=== PATIENT | female | born 1940 | race Caucasian/White ===

== ENCOUNTER → 2016-10-17 | Outpatient (CLI) | payer MEDICARE, BC ==
--- NOTE | 2016-10-17 10:13 | MM ---
Reason for exam: follow-up at short interval from prior study. Last mammogram was performed 6 months ago. History: Patient is postmenopausal. Benign u/S right breast localization of the right breast, May 14, 2011. 9 excisional biopsies of the left breast. 9 excisional biopsies of the right breast. Took tamoxifen for 5 years beginning at age 61. Physical Findings: Nurse did not find any significant physical abnormalities on exam. MG 3D Diag Mammo W/Cad LT CC and MLO view(s) were taken of the left breast. Prior study comparison: April 23, 2016, bilateral MG 3d screening mammo w/cad. December 11, 2014, bilateral MG screening mammo w CAD. The breast tissue is heterogeneously dense. This may lower the sensitivity of mammography. Finding: There are typically benign calcifications in the left breast. There is a chronic nodularity in the left breast. No significant changes in finding since April 23, 2016 and December 11, 2014. These results were verbally communicated with the patient and result sheet given to the patient on 10/17/16. ASSESSMENT: Benign, BI-RAD 2 RECOMMENDATION: Return to routine screening mammogram schedule for both breasts. Back on schedule.
== END | disposition home or self-care (01) ==
LOC: RADMAMWWP 09:06
PROVIDERS: ATTEND Surgery
DX: R92.8 Other abnormal and inconclusive findings on diagnostic imaging of breast (principal)
CPT/HCPCS: G0206; G0279

== ENCOUNTER → 2017-06-19 | Outpatient (CLI) | payer MEDICARE, BC ==
--- NOTE | 2017-06-22 11:58 | MM ---
Reason for exam: screening (asymptomatic). Last mammogram was performed 8 months ago. History: Patient is postmenopausal. Benign u/S right breast localization of the right breast, May 14, 2011. 9 excisional biopsies of the left breast. 9 excisional biopsies of the right breast. Took tamoxifen for 5 years beginning at age 61. Physical Findings: A clinical breast exam by your physician is recommended on an annual basis and results should be correlated with mammographic findings. MG 3D Screening Mammo W/Cad Bilateral CC and MLO view(s) were taken. Prior study comparison: October 17, 2016, left breast MG 3d diag mammo w/cad LT. April 23, 2016, bilateral MG 3d screening mammo w/cad. The breast tissue is extremely dense which could obscure a lesion on mammography. Stable benign calcifications. There is no discrete abnormality. No significant changes when compared with prior studies. ASSESSMENT: Benign, BI-RAD 2 RECOMMENDATION: Routine screening mammogram of both breasts in 1 year.
== END | disposition home or self-care (01) ==
LOC: RADMAMWWP 08:53
PROVIDERS: ATTEND Surgery
DX: Z12.31 Encounter for screening mammogram for malignant neoplasm of breast (principal)
CPT/HCPCS: 77063; 77067

== ENCOUNTER → 2020-03-02 | Outpatient (CLI) | payer MEDICARE, BC ==
[2020-03-02 10:20] VITALS: BP 130/82; PULSE 102; RESP 18; TEMP 98.4
--- NOTE | 2020-03-02 10:38 | P.GSHP ---
History of Present Illness H&P Date: 03/02/20 Chief Complaint: fibrocystic breast disease Yasemin is a 79-year-old white female seen in consultation for Dr. Nataliia Lao who presents for breast evaluation. Yasemin does not feel any lumps masses or nodules of concern in her breasts. Her last mammogram was 2 years ago . She has had a long history of very fibrocystic breast disease. She was actually on a antiestrogen trial approximately 20 years ago in which after starting the medication the lumpiness of her breast resolved. She was on that medication for five years. She has had bilateral breast biopsies in the operating room all of which have been benign in the remote past. She is not complaining of any trauma or infection in the breast. Caffeine:3 cups/day Nicotine: Negative Theophylline: daily Family History: uncle (maternal): stomach maternal aunt: lymphoma mother: skin cancer Hormonal History: menarche: 13 , breast fed: no, age at first : 25 menopause: hysterectomy at 35, left ovaries; no cancer BCP: 5 years hormones: none Surgical history: Bilateral breast biopsies Hysterectomy tonsil Medical history: Negative leaky bladder Social history: Nicotine: Negative Alcohol: Negative Drugs: Negative - Constitutional Constitutional: Denies chills, Denies fever - EENT Eyes: denies blurred vision, denies pain Ears: bilateral: decreased hearing (wears hearing aids), deny: tinnitus Ears, nose, mouth and throat: Denies headache, Denies sore throat - Breasts Breasts: bilateral: as per HPI - Cardiovascular Cardiovascular: Denies chest pain, Denies shortness of breath - Respiratory Respiratory: Denies cough, Denies 7 - Gastrointestinal Gastrointestinal: Denies abdominal pain, Denies diarrhea, Denies nausea, Denies vomiting - Genitourinary (Female) Genitourinary: Reports kidney stones, Denies dysuria, Denies hematuria - Menstruation Menstruation: Reports post hysterectomy - Musculoskeletal Comment: 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 - Integumentary Integumentary: Denies pruritus, Denies rash - Neurological Neurological: Denies numbness, Denies weakness - Psychiatric Psychiatric: Denies anxiety, Denies depression - Endocrine Endocrine: Denies fatigue, Denies weight change - Hematologic/Lymphatic Comment: none - Allergic/Immunologic Allergic/Immunologic: Reports seasonal allergies Past Medical History Past Medical History: Eye Disorder, Hearing Disorder / Deafness, Osteoarthritis (OA) History of Any Multi-Drug Resistant Organisms: None Reported Past Surgical History: Hysterectomy, Orthopedic Surgery Additional Past Surgical History / Comment(s): BILATERAL CATARACTS Past Anesthesia/Blood Transfusion Reactions: No Reported Reaction Past Psychological History: No Psychological Hx Reported Smoking Status: Never smoker Past Alcohol Use History: None Reported Past Drug Use History: None Reported Medications and Allergies Home Medications Medication Instructions Recorded Confirmed Type Oxybutynin Chloride [Ditropan XL] 10 mg PO DAILY 02/13/14 03/02/20 History Loratadine [Claritin] 5 mg PO DAILY 03/02/20 03/02/20 History Multivitamin [Multivitamins Adult 1 each PO DAILY 03/02/20 03/02/20 History Gummies] Allergies Allergy/AdvReac Type Severity Reaction Status Date / Time adhesive Allergy Unknown Verified 03/02/20 10:01 Benzodiazepines Allergy Rash/Hives Verified 03/02/20 10:01 chlordiazepoxide HCl Allergy Rash/Hives Verified 03/02/20 10:01 [From Librium] diazepam [From Valium] Allergy Itching Verified 03/02/20 10:01 hydroxyzine Allergy Nausea & Verified 03/02/20 10:01 Vomiting HEADACHE meperidine HCl [From Demerol] Allergy Nausea & Verified 03/02/20 10:01 Vomiting,HEADACHE Surgical - Exam Vital Signs Temp Pulse Resp BP Pulse Ox 98.4 F 102 H 18 130/82 93 L 03/02/20 10:03 03/02/20 10:03 03/02/20 10:03 03/02/20 10:03 03/02/20 10:03 BMI 32.4 - General no distress - Eyes normal ocular movement - ENT no hearing loss, no congestion - Neck trachea midline - Respiratory normal respiratory effort, clear to auscultation - Cardiovascular Rhythm: regular Heart Sounds: normal: S1, S2 - Abdomen Abdomen: soft, bowel sounds - Integumentary normal turgor - Neurologic no disoriented, no combative - Musculoskeletal normal gait, normal posture - Psychiatric oriented to time, oriented to person, oriented to place, speech is normal, memory intact breast exam: BRA: 36 DD Inspection: Bilateral grade 2/3 ptosis, tatoo left breast Palpation: Right breast slightly larger than left breast, multiple positional exam fibrocystic changes, no dominant masses or nodules of concern Right axilla: No adenopathy of concern left breast: Multi-positional exam no dominant masses or nodules of concern fibrocystic changes Left axilla: No adenopathy of concern Assessment and Plan Assessment: Impression: 1. fibrocystic breast disease 2. Prior antiestrogen study 3. Family history of cancer Plan: 1. Bilateral mammogram 2. Follow-up after mammogram if this is benign yearly surveillance 3. Patient to call if any questions or concerns CC: Dr. Nataliia Lao encounter 35 minutes, > 50% of time in planning and counselling
== END | disposition home or self-care (01) ==
LOC: WWCWWP 09:35
PROVIDERS: ATTEND Surgery
DX: Z53.9 Procedure and treatment not carried out, unspecified reason (principal)

== ENCOUNTER → 2020-03-07 | Outpatient (CLI) | payer MEDICARE, BC ==
--- NOTE | 2020-03-08 11:11 | MM ---
Reason for exam: screening (asymptomatic). Last mammogram was performed 2 years and 9 months ago. History: Patient is postmenopausal. Benign u/S right breast localization of the right breast, May 14, 2011. 9 excisional biopsies of the left breast. 9 excisional biopsies of the right breast. Took tamoxifen for 5 years beginning at age 61. Physical Findings: A clinical breast exam by your physician is recommended on an annual basis and results should be correlated with mammographic findings. MG 3D Screening Mammo W/Cad Bilateral CC and MLO view(s) were taken. Prior study comparison: June 19, 2017, bilateral MG 3d screening mammo w/cad. October 17, 2016, left breast MG 3d diag mammo w/cad LT. The breast tissue is extremely dense which could obscure a lesion on mammography. Stable benign calcifications. Stable post operative distortion left breast. No significant changes when compared with prior studies. ASSESSMENT: Benign, BI-RAD 2 RECOMMENDATION: Routine screening mammogram of both breasts in 1 year.
== END | disposition home or self-care (01) ==
LOC: RADMAMWWP 07:43
PROVIDERS: ATTEND Surgery
DX: Z12.31 Encounter for screening mammogram for malignant neoplasm of breast (principal)
CPT/HCPCS: 77063; 77067

== ENCOUNTER → 2020-03-23 | Outpatient (CLI) | payer MEDICARE, BC ==
[2020-03-23 16:17] VITALS: BP 134/79; PULSE 83; RESP 16; TEMP 98.4
--- NOTE | 2020-03-23 16:23 | P.PN ---
Progress Note - Text Progress Note Date: 03/23/20 Yasemin is here for results [place] [id number]. This is benign BIRADS 2. She will have repeat bilateral mammogram in 1 year with physician exam at that time. cc: DR. Lao encounter 5 minutes, > 50% of time on planning and counselling
== END | disposition home or self-care (01) ==
LOC: WWCWWP 15:00
PROVIDERS: ATTEND Surgery
DX: Z53.9 Procedure and treatment not carried out, unspecified reason (principal)

== ENCOUNTER → 2020-04-02 | Outpatient (CLI) | payer MEDICARE, BC ==
--- NOTE | 2020-04-02 18:38 | BD ---
EXAMINATION TYPE: Axial Bone Density DATE OF EXAM: 04/02/2020 COMPARISON: NONE CLINICAL HISTORY: Postmenopausal screening Height: 4 FT 9 1/2 IN Weight: 153 FRAX RISK QUESTIONS: Alcohol (3 or more units per day): NO Family History (Parent hip fracture): NO Glucocorticoids (More than 3mos): NO (Ex: prednisone, prednisolone, methylprednisolone, dexamethasone, and hydrocortisone). History of Fracture in Adulthood: YES Secondary Osteoporosis: 1. Type 1 Diabetes: NO 2. Hyperthyroidism: NO 3. Menopause before 45: YES 4. Malnutrition: NO 5. Chronic liver disease: NO Rheumatoid Arthritis: NO Current Tobacco Use: NO RISK FACTORS HISTORY OF: Family History of Osteoporosis: NO Active: YES Diet low in dairy products/other sources of calcium: NO Postmenopausal woman: TOTAL HYST AGE 33 Take estrogen and/or progesterone medications: NO Lost more than 2 inches in height since high school: YES Frequent falls: NO Poor Health: NO MEDICATIONS: Additional Medications: BLADDER MEDS, OMEPRAZOLE, Additional History: EXAM MEASUREMENTS: Bone mineral densitometry was performed using the [employer] System. Bone mineral density as measured about the Lumbar spine is: ----- L1-L4(G/cm2): 1.176 T Score Values are as follows: ----- L2: 0.1 ----- L3: -0.4 ----- L4: 0.4 ----- L1-L4: 0.0 Bone mineral density has: INCREASED 9.6 % since study of: 2000 Bone mineral density about the R hip (g/cm2): 0.829 Bone mineral density about the L hip (g/cm2): 0.834 T Score values are as follows: -----R Neck: -1.5 -----L Neck: -1.5 -----R Total: -0.6 -----L Total: -0.4 Bone mineral density has: DECREASED -6.3 % since study of: 2000 IMPRESSION: Osteopenia (T Score between -2.5 and -1). There is slightly increased risk of fracture and the patient may be considered for treatment. Re-Screen 2-5 years. NOTE: T-SCORE=SD OF THE YOUNG ADULT MEAN.
== END | disposition home or self-care (01) ==
LOC: RADBDWWP 06:58
PROVIDERS: ATTEND Family Medicine
DX: M85.80 Other specified disorders of bone density and structure, unspecified site (principal); Z78.0 Asymptomatic menopausal state
CPT/HCPCS: 77080

== ENCOUNTER → 2021-04-04 | Outpatient (CLI) | payer MEDICARE, BC ==
--- NOTE | 2021-04-08 10:00 | MM ---
Reason for exam: screening (asymptomatic). Last mammogram was performed 1 year and 1 month ago. History: Patient is postmenopausal. Benign u/S right breast localization of the right breast, May 14, 2011. 9 excisional biopsies of the left breast. 9 excisional biopsies of the right breast. Took hormonal contraceptives for 6 years. Took tamoxifen for 5 years beginning at age 61. Physical Findings: A clinical breast exam by your physician is recommended on an annual basis and results should be correlated with mammographic findings. MG 3D Screening Mammo W/Cad Bilateral CC and MLO view(s) were taken. Prior study comparison: March 07, 2020, bilateral MG 3d screening mammo w/cad. June 19, 2017, bilateral MG 3d screening mammo w/cad. October 17, 2016, left breast MG 3d diag mammo w/cad LT. April 23, 2016, bilateral MG 3d screening mammo w/cad. The breast tissue is heterogeneously dense. This may lower the sensitivity of mammography. Finding: There are increased number of typically benign grouped/clustered, fine calcifications in the upper outer quadrant, posterior position of the right breast. Previous mammotome biopsy in the left breast. New finding since March 07, 2020, June 19, 2017, October 17, 2016, and April 23, 2016. ASSESSMENT: Incomplete: need additional imaging evaluation, BI-RAD 0 RECOMMENDATION: Special view mammogram of the right breast. [facility] will attempt to contact patient to return for supplemental views.
== END | disposition home or self-care (01) ==
LOC: RADMAMWWP 13:05
PROVIDERS: ATTEND Surgery
DX: Z12.31 Encounter for screening mammogram for malignant neoplasm of breast (principal)
CPT/HCPCS: 77063; 77067

== ENCOUNTER → 2021-04-16 | Outpatient (CLI) | payer MEDICARE, BC ==
--- NOTE | 2021-04-16 11:57 | MM ---
Reason for exam: additional evaluation requested from abnormal screening. Last mammogram was performed less than 1 month ago. History: Patient is postmenopausal. Benign u/S right breast localization of the right breast, May 14, 2011. 9 excisional biopsies of the left breast. 9 excisional biopsies of the right breast. Took hormonal contraceptives for 6 years. Took tamoxifen for 5 years beginning at age 61. Physical Findings: Nurse did not find any significant physical abnormalities on exam. MG 3D Work Up W/Cad RT CC with magnification, MLO with magnification, and ML view(s) were taken of the right breast. Prior study comparison: April 04, 2021, bilateral MG 3d screening mammo w/cad. March 07, 2020, bilateral MG 3d screening mammo w/cad. The breast tissue is heterogeneously dense. This may lower the sensitivity of mammography. Finding: There is a 1.5-2.0cm coarse heterogeneous, grouped/clustered calcification in the upper outer quadrant, posterior position of the right breast confirmed on additional views. These results were verbally communicated with the patient and result sheet given to the patient on 04/16/21. ASSESSMENT: Suspicious, BI-RAD 4 RECOMMENDATION: Stereotactic core biopsy of the right breast. Called office with mammographic findings and has scheduled an appointment for the patient for 04/18/21 at 9:[address] Kent. Biopsy scheduled for 05/23/21 at 7:00. PRELIMINARY REPORT CALLED AND FAXED TO DR. KENT ON 04/16/21.
== END | disposition home or self-care (01) ==
LOC: RADMAMWWP 09:56
PROVIDERS: ATTEND Surgery
DX: R92.8 Other abnormal and inconclusive findings on diagnostic imaging of breast (principal)
CPT/HCPCS: 77065; G0279; 77061

== ENCOUNTER → 2021-04-18 | Outpatient (CLI) | payer MEDICARE, BC ==
[2021-04-18 09:44] VITALS: BP 147/84; PULSE 82; RESP 18; TEMP 98.2
--- NOTE | 2021-04-18 10:27 | P.PN ---
Subjective Progress Note Date: 04/18/21 Principal diagnosis: abnormal right breast mammogram Yasemin is a 80-year-old white female who presents for breast evaluation. Yasemin does not feel any lumps masses or nodules of concern in her breasts. She has had a long history of very fibrocystic breast disease. She was actually on a antiestrogen trial approximately 20 years ago in which after starting the medication the lumpiness of her breast resolved. She was on that medication for five years. She has had bilateral breast biopsies in the operating room all of which have been benign in the remote past. She is not complaining of any trauma or infection in the breast. She had a bilateral mammogram performed on [id number] additional views of the right breast were requested. On additional views of the right breast the patient was noted to have calcifications in the upper outer quadrant and recommendation for stereotactic core biopsy. Caffeine:3 cups/day Nicotine: Negative chocolate: daily Family History: uncle (maternal): stomach maternal aunt: lymphoma mother: skin cancer Hormonal History: menarche: 13 , breast fed: no, age at first : 25 menopause: hysterectomy at 35, left ovaries; no cancer BCP: 5 years hormones: none Surgical history: Bilateral breast biopsies Hysterectomy tonsil Medical history: leaky bladder Social history: Nicotine: Negative Alcohol: Negative Drugs: Negative - Constitutional Constitutional: Denies chills, Denies fever - EENT Eyes: denies blurred vision, denies pain Ears: bilateral: decreased hearing (wears hearing aids), deny: tinnitus Ears, nose, mouth and throat: Denies headache, Denies sore throat - Breasts Breasts: bilateral: as per HPI - Cardiovascular Cardiovascular: Denies chest pain, Denies shortness of breath - Respiratory Respiratory: Denies cough - Gastrointestinal Gastrointestinal: Denies abdominal pain, Denies diarrhea, Denies nausea, Denies vomiting - Genitourinary (Female) Genitourinary: Reports kidney stones, Denies dysuria, Denies hematuria - Menstruation Menstruation: Reports post hysterectomy - Musculoskeletal Comment: 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 - Integumentary Integumentary: Denies pruritus, Denies rash - Neurological Neurological: Denies numbness, Denies weakness - Psychiatric Psychiatric: Denies anxiety, Denies depression - Endocrine Endocrine: Denies fatigue, Denies weight change - Hematologic/Lymphatic Comment: none - Allergic/Immunologic Allergic/Immunologic: Reports seasonal allergies Objective - Vital Signs Vital signs: Vital Signs Temp 98.2 F 04/18/21 09:42 Pulse 82 04/18/21 09:42 Resp 18 04/18/21 09:42 BP 147/84 04/18/21 09:42 Pulse Ox 96 04/18/21 09:42 Intake & Output 04/17/21 04/18/21 04/18/21 18:59 06:59 18:59 Weight 68.039 kg - Constitutional General appearance: Present: cooperative - EENT Eyes: Present: EOMI ENT: Present: hearing grossly normal - Neck Neck: Present: normal ROM - Respiratory Respiratory: bilateral: CTA - Cardiovascular Rhythm: regular Heart sounds: normal: S1, S2 - Gastrointestinal General gastrointestinal: Present: soft - Integumentary Integumentary: Present: normal turgor - Musculoskeletal Musculoskeletal: Present: gait normal - Psychiatric Psychiatric: Present: A&O x's 3, appropriate affect, intact judgment & insight - Additional findings Additional findings: Breast Exam: BRA: 48DD inspection: bilateral grade 3 ptosis Palpation: Right breast: Multi-positional exam fibrocystic changes no dominant masses or nodules of concern, well-healed scar from prior surgery Right axilla: No adenopathy of concern Left breast: Multiple positional exam fibrocystic changes no dominant masses or nodules of concern Left axilla: No adenopathy of concern Assessment and Plan Assessment: Impression: 1. Abnormal right breast mammogram 2. Fibrocystic breast changes Plan: 1. Stereotactic core biopsy of the right breast 2. Follow-up after stereotactic core biopsy of the right breast CC: Dr. Nataliia Lao
== END | disposition home or self-care (01) ==
LOC: WWCWWP 09:21
PROVIDERS: ATTEND Surgery
DX: Z53.9 Procedure and treatment not carried out, unspecified reason (principal)

== ENCOUNTER → 2021-05-23 | Day surgery (SDC) | payer MEDICARE, BC ==
[2021-05-23 07:15] VITALS: BP 135/83; PULSE 85; RESP 16; TEMP 98.3
--- NOTE | 2021-05-23 08:47 | P.PCN ---
Date of Procedure: 05/23/21 Preoperative Diagnosis: microcalcifications of concern right breast upper outer quadrant Postoperative Diagnosis: Same Procedure(s) Performed: Stereotactic core biopsy right breast Anesthesia: local Surgeon: Tete Kent Pathology: other (Breast tissue/radiograph reveals microcalcifications of concern) Condition: stable Disposition: same day Indications for Procedure: Microcalcifications of concern right breast upper outer quadrant Operative Findings: Breast tissue with microcalcifications noted in radiograph Description of Procedure: Yasemin is a 80-year-old white female who on a routine mammogram was noted to have microcalcifications of concern in the right breast in the upper outer quadrant. A stereotactic core biopsy was recommended. Risks and benefits of the procedure were discussed with the patient. Alternatives such as watchful waiting or resection the operating room were discussed but not recommended. The patient agreed to stereotactic core biopsy. The patient was taken to stereotactic core biopsy room. CC from above approach was utilized to obtain a bulk delivery driver film. The calcifications of concern were identified. Stereo pair was obtained. The calcifications were targeted. The breast was prepped using Betadine. 20 mL of 1% lidocaine were used to anesthetize the area of concern. A 9-gauge vacuum-assisted core rotating biopsy needle was driven to the correct coordinates. A prefire film was obtained. The needle was noted to be in the correct location. The needle was fired. A post fire film was obtained. The needle was again noted to be in the correct location. 13 samples were obtained. The area was lavaged. Radiograph of the sample revealed the calcifications of concern had been obtained. A secure marked Hypaque clip was placed. This was noted to be in the correct location. The specimen was sent to pathology. The patient will follow-up with Dr. Vaughn. The patient tolerated the procedure in stable condition.
--- NOTE | 2021-05-23 11:09 | MM ---
Yasemin is a 80-year-old white female who on a routine mammogram was noted to have microcalcifications of concern in the right breast in the upper outer quadrant. A stereotactic core biopsy was recommended. Risks and benefits of the procedure were discussed with the patient. Alternatives such as watchful waiting or resection the operating room were discussed but not recommended. The patient agreed to stereotactic core biopsy. The patient was taken to stereotactic core biopsy room. CC from above approach was utilized to obtain a bevel face stoner and polisher film. The calcifications of concern were identified. A stereo pair was obtained. The calcifications were targeted. The breast was prepped using Betadine. 20 mL of 1% lidocaine were used to anesthetize the area of concern. A 9-gauge vacuum-assisted core rotating biopsy needle was driven to the correct coordinates. A prefire film was obtained. The needle was noted to be in the correct location. The needle was fired. A post fire film was obtained. The needle was again noted to be in the correct location. 13 samples were obtained. The area was lavaged. Radiograph of the sample revealed the calcifications of concern had been obtained. A secure marked Top Hat clip was placed. This was noted to be in the correct location. The specimen was sent to pathology. A postprocedure mammogram revealed the clip to have migrated approximately 3 cm inferior to the biopsy site. The calcifications of concern however had been adequately sampled and were not present in the postprocedure mammogram. The patient will follow-up with Dr. Vaughn. The patient tolerated the procedure in stable condition. JADIEL
== END ==
LOC: RADMAMWWP 06:59
PROVIDERS: ATTEND Surgery
DX: R92.0 Mammographic microcalcification found on diagnostic imaging of breast (principal)
CPT/HCPCS: 19081; 88305; A4648; J2001

== ENCOUNTER → 2021-06-13 | Outpatient (CLI) | payer MEDICARE, BC ==
[2021-06-13 11:58] VITALS: BP 138/72; PULSE 87; RESP 18; TEMP 98.3
--- NOTE | 2021-06-13 12:04 | P.PN ---
Subjective Progress Note Date: 06/13/21 Principal diagnosis: fiborcystic breast changes Yasemin is a 80 year old white female status post stero biopsy of the right breast on 05-27-21. The pathology was benign/concordant. 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 She tolerated the procedure without difficulty. Objective - Vital Signs Vital signs: Vital Signs Temp 98.3 F 06/13/21 11:52 Pulse 87 06/13/21 11:52 Resp 18 06/13/21 11:52 BP 138/72 06/13/21 11:52 Pulse Ox 95 06/13/21 11:52 Intake & Output 06/12/21 06/13/21 06/13/21 18:59 06:59 18:59 Weight 68.946 kg - Exam BMI 30.7 - Constitutional General appearance: Present: cooperative - EENT Eyes: Present: EOMI ENT: Present: hearing grossly normal - Neck Neck: Present: normal ROM - Respiratory Respiratory: bilateral: CTA - Cardiovascular Heart sounds: normal: S1, S2 - Integumentary Integumentary Comment(s): biopsy site clean and dry right breast/ ? Small hematoma at the biopsy site Assessment and Plan Assessment: Impression/Plan: Patient stable status post are tachycardic biopsy right breast pathology benign concordant Questionable small hematoma at biopsy site Repeat right breast mammogram in 6 months with physician exam at that time If patient notes anything of concern she will call sooner CC: Dr. Lao
== END | disposition home or self-care (01) ==
LOC: WWCWWP 11:01
PROVIDERS: ATTEND Surgery
DX: Z53.9 Procedure and treatment not carried out, unspecified reason (principal)

== ENCOUNTER → 2021-11-25 | Outpatient (CLI) | payer MEDICARE, BC ==
--- NOTE | 2021-11-25 14:03 | MM ---
Reason for Exam: Follow-up at short interval from prior study. Last screening mammogram was performed 8 month(s) ago. Patient History: Menarche at age 13. First Full-Term at age 24. Left ovary removed at age 32. Right ovary removed at age 32. Hysterectomy at age 32. Postmenopausal. Patient used Hormonal Contraceptives for 6 years. Tamoxifen for 5 years from age 61 until age 66. Excisional Biopsy on the Right side. Excisional Biopsy on the Right side. Excisional Biopsy on the Right side. Excisional Biopsy on the Right side. Excisional Biopsy on the Right side. Excisional Biopsy on the Right side. Excisional Biopsy on the Right side. Excisional Biopsy on the Right side. Excisional Biopsy on the Right side. Excisional Biopsy on the Left side. Excisional Biopsy on the Left side. Excisional Biopsy on the Left side. Excisional Biopsy on the Left side. Excisional Biopsy on the Left side. Excisional Biopsy on the Left side. Excisional Biopsy on the Left side. Excisional Biopsy on the Left side. Excisional Biopsy on the Left side. 05/23/2021, Benign Core Biopsy on the right side. 05/14/2011, Benign Excisional Biopsy on the right side. Risk Values: Tamar 5 year model risk: 2.2%. NCI Lifetime model risk: 3.4%. Prior Study Comparison: 03/07/2020 Bilateral Screening Mammogram, [facility]. 04/04/2021 Bilateral Screening Mammogram, [facility]. 04/16/2021 Right Diagnostic Mammogram, [facility]. Tissue Density: Right: The breast tissue is heterogeneously dense. This may lower the sensitivity of mammography. Findings: Analyzed By CAD. There are multiple benign appearing calcifications present. Coronary markers are present. Some postbiopsy distortion remains present. No significant interval change is evident. Overall Assessment: Benign, BI-RAD 2 Management: Screening Mammogram of both breasts in 5 months. A clinical breast exam by your physician is recommended on an annual basis and results should be correlated with mammographic findings. This exam should not preclude additional follow-up of suspicious palpable abnormalities. Results were given to the patient verbally at the time of exam. Electronically signed and approved by: Shabbir Wu D.O. Radiologis
== END | disposition home or self-care (01) ==
LOC: RADMAMWWP 13:30
PROVIDERS: ATTEND Surgery
DX: R92.8 Other abnormal and inconclusive findings on diagnostic imaging of breast (principal)
CPT/HCPCS: 77065; G0279; 77061

== ENCOUNTER → 2021-12-27 | Outpatient (CLI) | payer MEDICARE, BC ==
[2021-12-27 10:26] VITALS: BP 172/76; PULSE 89; RESP 17; TEMP 98.9
--- NOTE | 2021-12-27 10:28 | P.PN ---
Subjective Progress Note Date: 12/27/21 Principal diagnosis: fibrocystic breast abnormal right breast mammogram Yasemin is an 81-year-old white female who presents for breast evaluation. Yasemin does not feel any lumps masses or nodules of concern in her breasts. She has had a long history of very fibrocystic breast disease. She was actually on a antiestrogen trial approximately 20 years ago in which after starting the medication the lumpiness of her breast resolved. She was on that medication for five years. She has had bilateral breast biopsies in the operating room all of which have been benign in the remote past. She is not complaining of any trauma or infection in the breast. She had a bilateral mammogram performed on [id number] additional views of the right breast were requested. On additional views of the right breast the patient was noted to have calcifications in the upper outer quadrant and recommendation for stereotactic core biopsy. Stero biopsy was done on 05-27-21 which was concordant benign. She had a repeat right breast mammogram on 11-25-21 which was benign BIRAD 2. Does not feel any new lumps masses or nodules of concern in either breast. She has no complaints related to her breast. Caffeine:3 cups/day Nicotine: Negative chocolate: daily Family History: uncle (maternal): stomach maternal aunt: lymphoma mother: skin cancer Hormonal History: menarche: 13 , breast fed: no, age at first : 25 menopause: hysterectomy at 35, left ovaries; no cancer BCP: 5 years hormones: none Surgical history: Bilateral breast biopsies Hysterectomy tonsil stero biopsy right breast Medical history: leaky bladder Social history: Nicotine: Negative Alcohol: Negative Drugs: Negative - Constitutional Constitutional: Denies chills, Denies fever - EENT Eyes: denies blurred vision, denies pain Ears: bilateral: decreased hearing (wears hearing aids), deny: tinnitus Ears, nose, mouth and throat: Denies headache, Denies sore throat - Breasts Breasts: bilateral: as per HPI - Cardiovascular Cardiovascular: Denies chest pain, Denies shortness of breath - Respiratory Respiratory: Denies cough - Gastrointestinal Gastrointestinal: Denies abdominal pain, Denies diarrhea, Denies nausea, Denies vomiting - Genitourinary (Female) Genitourinary: Reports kidney stones, Denies dysuria, Denies hematuria - Menstruation Menstruation: Reports post hysterectomy - Musculoskeletal Comment: 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 - Integumentary Integumentary: Denies pruritus, Denies rash - Neurological Neurological: Denies numbness, Denies weakness - Psychiatric Psychiatric: Denies anxiety, Denies depression - Endocrine Endocrine: Denies fatigue, Denies weight change - Hematologic/Lymphatic Comment: none - Allergic/Immunologic Allergic/Immunologic: Reports seasonal allergies Objective - Constitutional General appearance: Present: cooperative - EENT Eyes: Present: EOMI - Neck Neck: Present: normal ROM - Respiratory Respiratory: bilateral: CTA - Cardiovascular Rhythm: regular Heart sounds: normal: S1, S2 - Integumentary Integumentary: Present: normal turgor - Musculoskeletal Musculoskeletal: Present: gait normal - Psychiatric Psychiatric: Present: A&O x's 3, appropriate affect, intact judgment & insight - Additional findings Additional findings: Breast Exam: BRA: 36DD inspection: Bilateral grade 2/3 ptosis, well-healed scars from prior biopsy bilateral breast palpation: right breast: Multiple positional exam fibrocystic changes no dominant masses or nodules of concern Right axilla: No adenopathy of concern Left breast: Multiple positional exam fibrocystic changes no dominant masses or nodules of concern Left axilla: No adenopathy of concern Assessment and Plan Assessment: Impression: Fibrocystic breast Plan: Bilateral mammogram 5 months with physician exam at that time Patient to follow up sooner any questions or concerns CC: Dr. Frost
== END ==
LOC: WWCWWP 10:16
PROVIDERS: ATTEND Surgery
DX: N60.11 Diffuse cystic mastopathy of right breast (principal); N60.12 Diffuse cystic mastopathy of left breast; Z91.048 Other nonmedicinal substance allergy status; Z88.5 Allergy status to narcotic agent; Z88.8 Allergy status to other drugs, medicaments and biological substances